=== PATIENT | male | born 1975 | race Two or more races ===

== ENCOUNTER 2016-04-14 04:29 | Emergency (ER) | payer SELFPAY ==
[~2016-04-14] VITALS: Ht 175.3 cm; Wt 108.9 kg
[2016-04-14 04:36] VITALS: BP 132/82
== END 2016-04-14 05:41 | disposition home or self-care (01) ==
LOC: ER 04:31
DX: J06.9 Acute upper respiratory infection, unspecified (principal)
CPT/HCPCS: 71010; 99283; A4606; Z7610